=== PATIENT | female | born 1995 | race Caucasian/White ===

== ENCOUNTER 2021-01-22 06:54 | Emergency (ER) | payer BC ==
[~2021-01-22] VITALS: Ht 157.5 cm; Wt 68.0 kg
[2021-01-22] MEDS ORDERED: diphenhydrAMINE 50 MG/1 ML VIAL IV ONE (07:30)
[2021-01-22] MEDS ORDERED: IV NORMAL SALINE 1000 ML BAG IV ONE (07:30)
[2021-01-22] MEDS ORDERED: METOCLOPRAMIDE HCL 10 MG/2 ML VIAL IV ONE (07:30)
[2021-01-22] MEDS ORDERED: METOCLOPRAMIDE HCL 10 MG/2 ML VIAL ONE (07:43)
--- NOTE | 2021-01-22 07:43 | NUR ---
PT EVALUATED BY DR MCCLURE.
[2021-01-22] MEDS ORDERED: diphenhydrAMINE 50 MG/1 ML VIAL ONE (07:44)
[2021-01-22 07:53] LABS: HEMATOCRIT 39.7 % (31.2-41.9); MEAN CORPUSCULAR HEMOGLOBIN 29.6 uug (24.7-32.8); PLATELET COUNT (AUTO) 408 K/uL (179-408)
[2021-01-22 07:57] LABS: CREATININE 0.7 mg/dL (0.6-1.3); POTASSIUM 3.5 mmol/L (3.5-5.1)
[2021-01-22 08:02] LABS: BILIRUBIN,DIRECT 0.1 mg/dL (0.0-0.2); BILIRUBIN,TOTAL 0.3 mg/dL (0.2-1.0); TOTAL PROTEIN, SERUM 7.5 g/dL (6.4-8.2)
[2021-01-22 08:16] LABS: *BILIRUBIN,URIN NEGATIVE (NEGATIVE); *BLOOD, URINE NEGATIVE (NEGATIVE); *CLARITY,URINE CLEAR (CLEAR); *COLOR,URINE YELLOW (YELLOW); *KETONES,URINE NEGATIVE (NEGATIVE); *UROBILINOGEN,URINE 0.2 E.U./dl (NORMAL); LEUKOCYTE ESTERASE ,URINE NEGATIVE (NEGATIVE); NITRITE, URINE NEGATIVE (NEGATIVE); UGLUCOSE NEGATIVE (NEGATIVE)
[2021-01-22 08:23] LABS: *URINE HCG, QUAL NEGATIVE (NEGATIVE)
[2021-01-22] MEDS ORDERED: ONDA8TAB13 PO (09:25)
[2021-01-22] MEDS ORDERED: IBUP-1955 PO (09:25)
--- NOTE | 2021-01-22 09:33 | NUR ---
Patient discharged to home in stable condition, accompanied by significant other walked with steady gait. Written and verbal after care instructions given. Patient verbalizes understanding of instructions. Stressed follow up or return to ER for worsening s/s.
[2021-01-22 09:34] VITALS: BP 118/73
== END 2021-01-22 09:37 | disposition home or self-care (01) ==
LOC: ER 07:03
DX: G43.909 Migraine, unspecified, not intractable, without status migrainosus (principal); Z20.822 Contact with and (suspected) exposure to COVID-19
CPT/HCPCS: 36415; 80048; 80076; 81003; 84703; 85025; 87426; 96361; 96374; 96375; 99284; J1200; J2765; A4663; J7030